=== PATIENT | male | born 1990 | race Caucasian/White ===

== ENCOUNTER 2022-02-17 18:24 | Emergency (ER) | payer OTHER, SELFPAY ==
--- NOTE | ~2022-02-17 | CT_ITS ---
EXAMINATION: CT abdomen pelvis w con DATE: 02/17/2022 21:01 INDICATION: epigastric pain TECHNIQUE: Computed tomography (CT) of the abdomen and pelvis was performed with 100 mL Omnipaque-300 intravenous contrast. Automated exposure control and iterative reconstruction technique were employe d. The dose-length product was 1009.95 mGy-cm. COMPARISON: None. FINDINGS: Lower thorax: Unremarkable Liver: Normal. Biliary/Gallbladder: Gallbladder is normal. No bile duct dilation. Pancreas: No mass or duct dilation. Spleen: Normal. Adrenals:1.2 cm indeterminate density left adrenal nodule. Kidneys: Punctate nonobstructive left calculus, no mass or hydronephrosis. GI tract: No small or large bowel dilation. Normal appendix. Mesentery/Peritoneum: No ascites, mass, or free air. Retroperitoneum: No mass. Pelvis: Partially distended bladder, with mild wall edema and inflammatory change. Soft Tissues: Soft tissues and body wall unremarkable. Bones: No acute osseous finding. IMPRESSION: Possible cystitis, correlate with urinalysis. 1.2 cm indeterminate left adrenal nodule, consider outp atient CT with adrenal mass protocol in one year for further evaluation. Reviewed, dictated and finalized at location [facility]. IMPRESSION: Possible cystitis, correlate with urinalysis. 1.2 cm indeterminate left adrenal nodule, consider outpatient CT with adrenal mass protocol in one year for furt her evaluation.
--- NOTE | ~2022-02-17 | XR_ITS ---
EXAMINATION: XR chest 2V Exam Date/Time: 02/17/2022 18:45 CDT HISTORY: STERNAL CP RADIATES INTO MIDDLE OF BACK AND ABD,X1 WK Comparison: None available. RESULT: Lines, tubes, and devices: None. Lungs and pleura: Clear. Cardiomediastinal silhouette: Normal cardiomediastinal silhouette. Other: No acute osseous or upper abdominal finding. IMPRESSION: No acute cardiopulmonary process. Reviewed, dictated and finalized at location [facility].
[2022-02-17 18:27] VITALS: BP 133/81; PULSE 94; RESP 18; TEMP 36.6; O2SAT 100
--- NOTE | 2022-02-17 18:27 | ECG_ITS ---
Measurements Intervals [place] Rate: 86 P: 13 UT: 169 QRS: -13 QRSD: 105 T: 2 QT: 345 QTc: 415 Interpretive Statements SINUS RHYTHM NO PREVIOUS ECG AVAILABLE FOR COMPARISON Electronically Signed On 02-18-2022 10:50:51 CDT by Jad Walsh M.D.
[2022-02-17 18:40] LABS: Basophils Absolute Auto 0.1 K/mm3 (0.0-0.1); Basophils Percent Auto 0.9 % (0.2-1.2); Eosinophils Absolute Auto 0.2 K/mm3 (0-0.3); Eosinophils Percent Auto 1.4 % (0-4.4); Hematocrit 47.3 % (42.0-52.0); Hemoglobin 16.1 g/dL (14.0-18.0); Immature Granulocyte Absolute 0.13 K/mm3 (0.00-0.031); Immature Granulocyte Percent A 1.2 % (0-0.5); Lymphocytes Absolute Auto 3.39 K/mm3 (0.9-3.2); Mean Corpuscular Volume 85.2 fl (80-100); Mean Platelet Volume 10.1 fl (7.4-10.4); Monocytes Absolute Auto 0.8 K/mm3 (0.1-0.6); Monocytes Percent Auto 7.4 % (2.6-8.5); Neutrophils Absolute Auto 6.1 K/mm3 (1.3-6.7); Neutrophils Percent Auto 57.1 % (45.5-73.1); Platelet Count Result 253 k/mm3 (150-375); Red Blood Count 5.55 M/mm3 (4.6-6.20); Red Cell Distribution Width 12.1 % (11.5-14.5); White Blood Count 10.6 K/mm3 (4.5-10.0)
[2022-02-17 18:56] LABS: Alanine Aminotransferase 42 U/L (6-50); Alkaline Phosphatase 82 U/L (38-126); Anion Gap 6 mmol/L (8-16); Aspartate Amino Transferase 31 U/L (17-59); Bilirubin,Total 0.4 mg/dL (0.2-1.3); Blood Urea Nitrogen 17 mg/dL (9-20); Calcium 9.2 mg/dL (8.4-10.2); Carbon Dioxide 29 mmol/L (22-30); Chloride 103 mmol/L (98-107); Estimated CRCL calculation 128 ml/min; Estimated Glomerular Filt Rate > 60; Glucose 104 mg/dL (65-110); Lipase 83 U/L (23-300); Partial Thromboplastin Time 26.9 SECONDS (22.3-36.8); Potassium 4.2 mmol/L (3.4-5.0); Prothrombin Time 12.5 Seconds (11.1-14.7); Sodium 138 mmol/L (137-145)
[2022-02-17 19:07] LABS: Troponin I < 0.012 ng/mL (0.000-0.034)
[2022-02-17 19:53] VITALS: BP 138/84; PULSE 77; RESP 20; O2SAT 99
--- NOTE | 2022-02-17 19:59 | ED.GENADULT ---
HPI - General Adult General Chief complaint: Chest Pain Stated complaint: abd pain, chest pain, back pain Time Seen by Provider: 02/17/22 19:45 History of Present Illness HPI narrative: 31-year-old male presents to the emergency room for evaluation of epigastric pain that has been present for 3 weeks. Patient states 3 weeks ago he was diagnosed with strep throat, and was given a course of amoxicillin. Patient states that he has been experiencing diarrhea since. Patient states that he also had a couple of episodes of nausea and vomiting, and since then has been experiencing epigastric pain that radiates into his back. Patient describes pain as a prickly sensation that is worse with movement and when he is laying down. Patient denies any shortness of breath or weakness. Related Data Home Medications Medication Instructions Recorded Confirmed No Home Medications 02/17/22 Allergies Allergy/AdvReac Type Severity Reaction Status Date / Time No Known Allergies Allergy Verified 02/17/22 18:30 Review of Systems Review of Systems: CONSTITUTIONAL: Denies fever, chills, or sweats. EYES: Denies visual changes, redness, or discharge. ENT: Denies rhinorrhea, congestion, sore throat, or otalgia. CARDIOVASCULAR: Denies chest pain, palpitations, or edema. RESPIRATORY: Denies cough or dyspnea. GASTROINTESTINAL: Reports epigastric pain, diarrhea GENITOURINARY: Denies dysuria or hematuria. SKIN: Denies rash or itching. MUSCULOSKELETAL: Denies back pain, joint pain, or myalgia. NEUROLOGIC: Denies headache, numbness, dizziness, or weakness. PSYCHIATRIC: Denies anxiety or depression. PMFSH Past Medical History Medical History Calculus of kidney Family History Family History Grandparent Diabetes mellitus Hypertension Family history of coronary artery disease Father Family history of glaucoma Mother Hypertension Social History Social History Smoking status: Never smoker Alcohol intake: current Exam Narrative: GENERAL: Well-appearing, well-nourished, no physical limitations, and in no acute distress. HEAD: Normocephalic, atraumatic. EYES: Conjunctivae normal, PERRLA and EOMI. CHEST: Clear to auscultation. No respiratory distress. No wheezes rales or rhonchi. No tenderness. HEART: Regular rate and rhythm. No murmur heard. Normal peripheral pulses. ABDOMEN: Soft, epigastric tenderness, nondistended, normal active bowel sounds. SKIN: Warm, dry, no rash. No noted wounds NEURO: No focal deficits. Alert and oriented x3. MAEW. CN's II-XI intact bilaterally, normal gait PSYCH: Cooperative. Normal mood and affect. Course Vital Signs Vital signs: Vital Signs Temperature 36.6 C 02/17/22 18:27 Pulse Rate 94 02/17/22 18:27 Respiratory Rate 18 02/17/22 18:27 Blood Pressure 133/81 02/17/22 18:27 Pulse Oximetry 100 02/17/22 18:27 Oxygen Delivery Room Air 02/17/22 18:27 Temperature 36.6 C 02/17/22 18:27 Pulse Rate 77 02/17/22 19:53 Respiratory Rate 20 02/17/22 19:53 Blood Pressure 138/84 02/17/22 19:53 Pulse Oximetry 99 02/17/22 19:53 Oxygen Delivery Room Air 02/17/22 18:27 Medical Decision Making MDM Narrative Medical decision making narrative: 22-year-old male presented emergency room work evaluation chest pain that radiated into her back. Pain exam was without any evidence of volume overload. EKG showed no signs of ischemia. Troponin was negative. Presentation not consistent with an acute PE outs0. no evidence of a pneumothorax or any infectious processes on his chest x-ray. CT scan showed no evidence of acute appendectomy or hepatobiliary disease. Patient experienced relief of symptoms with a GI cocktail and Protonix. Vital Signs Vital Signs: Vital Signs Temperature 36.6 C 02/17/22 18:27 Pulse
[2022-02-17] MEDS: SODIUM CHLORIDE 0.9% IV 1,000 ML 999 ML IV CONT (20:25)
[2022-02-17] MEDS: BELLADONNA ALK/PHENOB ELIX 10 ML, MAG HYDROX/ALUMINUM HYD/SIMETH 30 ML, LIDOCAINE HCL 2... PO (20:27)
[2022-02-17] MEDS: PANTOPRAZOLE SODIUM IV 40 MG VIAL IV PUSH (20:27)
[2022-02-17 21:58] LABS: Appearance Urine Clear (Clear); Bilirubin Urine Negative (Negative); Blood Urine Negative (Negative); Color Urine Yellow (Yellow); Glucose Urine UA Negative (Negative); Ketones Urine Negative (Negative); Leukocyte Esterase Ur Negative LEU/UL (Negative); Nitrate Urine Negative (Negative); Protein Urine Negative (Negative); Urobilinogen Urine 0.2 mg/dL (<2.0)
[2022-02-17 21:59] LABS: Add Urine Microscopic? NO
[2022-02-17 22:08] LABS: Troponin I < 0.012 ng/mL (0.000-0.034)
[2022-02-17 22:24] VITALS: BP 126/86; PULSE 69; RESP 18; O2SAT 97
== END 2022-02-17 22:25 | disposition home or self-care (01) ==
PROVIDERS: Emergency Medicine; Emergency Provider Nurse Practitioner Family; PCP Family Medicine
DX: M94.0 Chondrocostal junction syndrome [Tietze] (principal); Z87.442 Personal history of urinary calculi; R93.422 Abnormal radiologic findings on diagnostic imaging of left kidney
CPT/HCPCS: 36415; 71046; 74177; 80053; 81003; 83690; 84484; 85025; 85610; 85730; 93005; 96361; 96374; 99284; A9270; C9113; J7030; Q9967

== ENCOUNTER 2023-11-23 09:51 | Outpatient (CLI) | payer OTHER, SELFPAY ==
--- NOTE | ~2023-11-23 | XR_ITS ---
Lumbosacral Spine: AP, oblique, and lateral views Clinical History: Pain Findings: The normal lordotic curve is maintained. The vertebral bodies and posterior elements are i ntact. The intervertebral disc spaces are preserved. The sacroiliac joints are normally outlined. Impression: No significant abnormality. Reviewed, dictated and finalized at [facility]. Impression: No significant abnormality.
== END 2023-11-23 09:52 ==
LOC: MICIMG 09:53
PROVIDERS: PCP Family Medicine; Visit Provider Physician Assistant
DX: M54.50 Low back pain, unspecified (principal)
CPT/HCPCS: 72110

== ENCOUNTER 2023-11-30 08:10 | Outpatient (CLI) | payer OTHER, SELFPAY ==
--- NOTE | ~2023-11-30 | MR_ITS ---
EXAMINATION: MR lumbar spine wo con DATE: 11/30/2023 08:51 INDICATION: Low back pain, unspecified. TECHNIQUE: Magnetic resonance imaging (MRI) of the lumbar spine was performed without intravenous con trast. Sequences included sagittal T2-weighted FSE, sagittal T2-weighted FS FSE, sagittal T1-weighted FSE, and axial T2-weighted FSE. COMPARISON: Lumbar spine radiographs 11/23/2023 FINDINGS: There is 5 degrees levocurvature of lumbar spine. Vertebral body heights are normal. Interv ertebral disc heights are normal. The distal spinal cord signal intensity is normal. The conus medull toshia is at L2. The following disc levels are specifically discussed: L1-L2: The disc does not extend beyond the endplate margin. There is mild bilateral facet joint osteo arthritis. There is no neural foraminal stenosis. There is no central canal stenosis. L2-L3: The disc does not extend beyond the endplate margin. There is mild bilateral facet joint osteo arthritis. There is no neural foraminal stenosis. There is no central canal stenosis. L3-L4: The disc does not extend beyond the endplate margin. There is mild bilateral facet joint osteo arthritis. There is no neural foraminal stenosis. There is no central canal stenosis. L4-L5: The disc is bulging. There is mild bilateral facet joint osteoarthritis. There is mild bilater al neural foraminal stenosis. There is mild central canal stenosis. L5-S1: The disc is bulging with superimposed right central extrusion. There is mild bilateral facet j oint osteoarthritis. There is mild left neural foraminal stenosis. There is mild central canal stenos is. IMPRESSION: 1. Mild lumbar spondylosis. Reviewed, dictated and finalized at location A. IMPRESSION: 1. Mild lumbar spondylosis.
== END 2023-11-30 08:11 ==
PROVIDERS: PCP Family Medicine; Visit Provider Physician Assistant
DX: M47.896 Other spondylosis, lumbar region (principal)
CPT/HCPCS: 72148

== ENCOUNTER 2024-03-24 16:01 | Outpatient (CLI) | payer OTHER, SELFPAY ==
--- NOTE | ~2024-03-24 | CT_ITS ---
EXAMINATION: CT abdomen pelvis wo con DATE: 03/24/2024 16:15 INDICATION: Kidney stone TECHNIQUE: Computed tomography (CT) of the abdomen and pelvis was performed without intravenous contr ast. Automated exposure control and iterative reconstruction technique were employed. The dose-length product was 922.71 mGy-cm. COMPARISON: None FINDINGS: Lung bases are clear. Heart size is normal. No pericardial or pleural effusion. Liver, gallbladder, s pleen, pancreas and right adrenal gland are normal. Unchanged approximately 11 mm left adrenal nodule which given interval stability is most consistent with an adenoma. 2 mm nonobstructing stone at the upper pole the left kidney. No hydronephrosis or other evident urolithiasis in either kidney or along the ureters. A few scattered colonic diverticula without adjacent inflammatory stranding to suggest diverticulitis. Small bowel and appendix are normal. Bladder is normal. No free intraperitoneal gas o r fluid. No pathologically enlarged abdominal or pelvic lymphadenopathy. Bones are unremarkable. IMPRESSION: 1. 2 mm nonobstructing left renal stone. Reviewed, dictated and finalized at location A.
== END 2024-03-24 16:02 ==
LOC: GOSHIMG 16:02
PROVIDERS: PCP Registered Nurse; Visit Provider Registered Nurse
DX: N20.0 Calculus of kidney (principal)
CPT/HCPCS: 74176